=== PATIENT | female | born 1985 | race Caucasian/White ===

== ENCOUNTER 2022-01-16 10:38 | Emergency (ER) | payer OTHER ==
--- OUTSIDE RECORDS SUMMARY | 2022-01-16 10:41 | XMS REPORT | Continuity of Care Document ---
:1985 Author Organization [facility] Address [address] [place] [address] Care Team Providers Name Role Phone SKYLAR SHOOK Attending Clinician Unavailable CYNTHIA MCKEON Attending Clinician Unavailable CYNTHIA MCKEON Admitting Clinician Unavailable Payers Payer Name Policy Type Policy Number Effective Date Expiration Date [facility] [id number] 2019 [facility] MEDICAID 00:00:00 MEDICAID [place] [id number] 2019 00:00:00 Problems This patient has no known problems. Allergies, Adverse Reactions, Alerts Allergy Allergy Status Severity Reaction(s) Onset Inactive Treating Comm ents Source Name Type Date Date Clinician NO KNOWN Drug Active [facility] Medications This patient has no known medications. Procedures This patient has no known procedures. Encounters Start End Encounter Admission Attending Care Care Encounter Source Date/Time Date/Time Type Type Clinicians Facility Department ID 2020-12-26 Outpatient P [facility] TIM [id number] Univers 12:26:20 [facility] 2020-09-14 2020-09-14 Outpatient Liz SHOOK [facility] [id number] Univers 09:00:00 09:00:00 SKYLAR [facility] 2020-04-14 2020-04-14 Outpatient Liz SHOOK [facility] [id number] Univers 09:15:00 09:15:00 SKYLAR fawn [facility] 2020-04-01 2020-04-01 Outpatient CYNTHIA BRANDT [facility] [id number] Univers 15:30:00 15:30:00 [facility] 2020-03-17 2020-03-17 Outpatient Liz SHOOK [facility] [id number] Univers 09:30:00 09:30:00 SKYLAR [facility] 2020-02-17 2020-02-17 Outpatient R MIKE CYNTHIA [facility] [id number] Univers 09:15:00 09:15:00 ity [facility] 2020-02-12 2020-02-12 Outpatient R CYNTHIA MCKEON [facility] [id number] Univers 11:00:00 11:00:00 ity [facility] 2020-02-05 2020-02-05 Outpatient R CYNTHIA MCKEON [facility] [id number] Univers 10:45:00 10:45:00 ity [facility] 2020-01-30 2020-01-30 Outpatient R MIKE CYNTHIA [facility] [id number] Univers 13:00[facility]00 [facility] 2020-01-22 Outpatient R CYNTHIA MCKEON [facility] [id number] Univers 10:45:00 10:45:00 [facility] 2020-01-08 2020-01-08 Outpatient R BOUCHRA [facility] [id number] Univers 10:15:00 10:15:00 [facility] 2019-12-31 2019-12-31 Outpatient R BOUCHRA [facility] [id number] Univers 16:15:00 16:15:00 [facility] 2019-12-24 2019-12-24 Outpatient P [facility] [id number] Univers 08:00:00 08:00:00 [facility] 2019-12-19 2019-12-19 Outpatient R BOUCHRA [facility] [id number] Univers 11:00:00 11:00:00 [facility] 2019-12-16 2019-12-16 Outpatient R BOUCHRA [facility] [id number] Univers 11:00:00 11:00:00 [facility] 2019-11-26 2019-11-26 Outpatient P [facility] [id number] Univers 13:00:00 13:00:00 ity [facility] 2019-11-18 2019-11-18 Outpatient R MIKE CYNTHIA [facility] [id number] Univers 15:30:00 15:30:00 [facility] 2019-09-27 2019-09-27 Outpatient R CYNTHIA MCKEON [facility] [id number] Univers 16:00:00 16:00:00 [facility] 2019-09-17 2019-09-17 Outpatient R CYNTHIA MCKEON [facility] [id number] Univers 13:45:00 13:45:00 [facility] 2019-09-13 2019-09-13 Outpatient R CYNTHIA MCKEON [facility] [id number] Univers 08:45:00 08:45:00 [facility] 2019-09-12 2019-09-12 Outpatient R MIKE CYNTHIA [facility] [id number] Univers 08:30:00 08:30:00 [facility] 2019-09-12 2019-09-12 Outpatient R [facility] [id number] Univers 08:15:00 08:15:00 [facility] 2019-09-05 2019-09-05 Outpatient P [facility] [id number] Univers 10:30:00 10:30:00 [facility] 2019-09-02 2019-09-02 Outpatient R [facility] [id number] Univers 08:30:00 08:30:00 [facility] 2019-08-30 2019-08-30 Outpatient R [facility] [id number] Univers 15:30:00 15:30:00 [facility] 2019-08-15 2019-08-15 Outpatient R MIKE CYNTHIA [facility] [id number] Univers 09:30:00 09:30:00 [facility] Results This patient has no known results.
[2022-01-16] MEDS ORDERED: MORPHINE 4 MG/ML SYR ONE (12:02)
[2022-01-16] MEDS ORDERED: FAMOTIDINE 20 MG/2 ML VIAL IV ONE (12:03)
[2022-01-16] MEDS ORDERED: NA CHLORIDE 0.9% 1,000 ML ONE (12:03)
[2022-01-16] MEDS ORDERED: ONDANSETRON 4 MG/2 ML VIAL ONE (12:03)
[2022-01-16 12:11] LABS: Urine Blood Negative (Negative); Urine Glucose Negative (Negative); Urine Protein Negative (Negative); Urine pH 7.5 (5.0-7.0)
[2022-01-16 12:45] LABS: Absolute Lymphocytes (CBC) 1.9 K/uL (0.7-4.9); Hematocrit 40.3 % (36.0-45.0); Lymphocytes % 22.9 % (15.3-44.8); MCV 86.4 fL (80-100); MPV 8.9 fL (7.6-11.3); RBC Red Blood Cell Count 4.66 M/uL (3.86-4.86)
[2022-01-16] MEDS ORDERED: KETOROLAC 30 MG/ML INJ ONE (13:08)
[2022-01-16 13:40] LABS: Albumin 3.4 g/dL (3.4-5.0); Protein, Total 7.9 g/dL (6.4-8.2)
--- NOTE | 2022-01-16 13:42 | RAD REPORT ---
EXAM DESCRIPTION: CTAbdomen Pelvis W Contrast - 01/16/2022 1:23 pm CLINICAL HISTORY: Abdominal pain. abdominal pain, vomiting COMPARISON: CT ABD PELVIS W CONTRAST dated 11/25/2014 TECHNIQUE: Biphasic CT imaging of the abdomen and pelvis was performed with 100 ml non-ionic IV cont rast. All CT scans are performed using dose optimization technique as appropriate and may include automated exposure control or mA/KV adjustment according to patient size. FINDINGS: The lung bases are clear.Cholecystectomy. The liver, spleen, pancreas, adrenal glands and kidneys are within normal limits. No bowel obstruction, free air, free fluid or abscess. The appendix is normal. No evidence of signi ficant lymphadenopathy. No suspicious bony findings. IMPRESSION: No acute intra-abdominal or pelvic finding.
[2022-01-16] MEDS ORDERED: MAGNES/ALUMIN/SIMET 30ML UCUP ONE (14:08)
[2022-01-16] MEDS ORDERED: LIDOCAINE VISCOUS 2% SOLN 15 ML UDC ONE (14:09)
[2022-01-16] MEDS ORDERED: METOCLOPRAMIDE 10 MG/2mL INJ ONE (15:22)
[2022-01-16] MEDS ORDERED: NA CHLORIDE 0.9% 250 ML ONE (15:23)
[2022-01-16] MEDS ORDERED: DIPHENHYDRAMINE 50 MG/ML VIAL ONE (15:23)
--- NOTE | 2022-01-16 16:38 | EDPHYS ---
Physician Documentation [facility] Name: Heide Acosta Age: 36 yrs Sex: Female : 1985 Arrival Date: 01/16/2022 Time: 10:41 Bed 23 Private MD: ED Physician Hayder García HPI: 01/16 11:07 This 36 yrs old Female presents to ER via Ambulatory with complaints of Abdominal Pain. jmm 11:07 The patient presents with abdominal pain. Onset: The symptoms/episode began/occurred jmm gradually. The symptoms do not radiate. 11:07 Is a 36-year-old female with history of asthma the presents emerged bar with complaints jmm of epigastric pain which is intermittent. Patient complains of one episode of vomiting. Denies any diarrhea. Pain is similar to previous episode acute cholecystitis. Patient no longer has gallbladder.. 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 - Social history:: Smoking status: Patient denies any tobacco usage or history of. ROS: 11:07 Constitutional: Negative for fever, chills, and weight loss, Cardiovascular: Negative jmm for chest pain, palpitations, and edema, Respiratory: Negative for shortness of breath, cough, wheezing, and pleuritic chest pain. 11:07 Abdomen/GI: Positive for abdominal pain. 11:07 All other systems are negative. Exam: 11:07 Constitutional: This is a well developed, well nourished patient who is awake, alert, jmm and in no acute distress. Head/Face: atraumatic. Eyes: EOMI, no conjunctival erythema appreciated ENT: Moist Mucus Membranes Neck: Trachea midline, Supple Chest/axilla: Normal chest wall appearance and motion. Cardiovascular: Regular rate and rhythm. No edema appreciated Respiratory: Normal respirations, no respiratory distress appreciated 11:07 Back: Normal ROM Skin: General appearance color normal MS/ Extremity: Moves all extremities, no obvious deformities appreciated, no edema noted to the lower extremities Neuro: Awake and alert Psych: Behavior is normal, Mood is normal, Patient is cooperative and pleasant 11:07 Abdomen/GI: Inspection: abdomen appears normal, Bowel sounds: normal, Palpation: soft, moderate abdominal tenderness, in the epigastric area. Vital Signs: 11:05 Pulse 89; Resp 16; Temp 98.5(TE); Pulse Ox 99% on R/A; Weight 108.86 kg; Height 5 ft. 2 ss in. (157.48 cm); Pain 10/10; 11:05 BP 128 / 85; ss 12:15 BP 116 / 67; Pulse 75; Resp 18; Pulse Ox 100% on R/A; em6 13:50 BP 109 / 70; Pulse 74; Resp 18; Pulse Ox 100% ; em6 14:55 BP 99 / 82; Pulse 90; Resp 18; Pulse Ox 100% on R/A; em6 16:15 BP 101 / 64; Pulse 65; Resp 18; Pulse Ox 100% on R/A; em6 11:05 Body Mass Index 43.90 (108.86 kg, 157.48 cm) ss MDM: 11:11 Patient medically screened. [facility] 16:37 Data reviewed: vital signs, nurses notes. Counseling: I had a detailed discussion with paul the patient and/or guardian regarding: the historical points, exam findings, and any diagnostic results supporting the discharge/admit diagnosis, lab results, radiology results, the need for outpatient follow up, to return to the emergency department if symptoms worsen or persist or if there are any questions or concerns that arise at home. ED course: CT is negative for any acute process. Patient advised follow GI for further evaluation. Patient otherwise here strict return precautions. Patient understood agrees plan of care. 01/16 11:07 Order name: CBC with Diff; Complete Time: 12:55 [facility] 01/16 11:07 Order name: CMP; Complete Time: 14:05 [facility] 01/16 11:07 Order name: Lipase; Complete Time: 14:05 [facility] 01/16 11:07 Order name: CT Abd/Pelvis - IV Contrast Only; Complete Time: 13:51 [facility] 01/16 12:11 Order name: Urine --Ancillary (enter results); Complete Time: 13:51 eb 01/16 12:11 Order name: Urine Dipstick-Ancillary; Complete Time: 12:12 [facility] 01/16 11:07 Order name: IV Saline Lock; Complete Time: 12:20 [facility] 01/16 11:07 Order name: Labs collected and sent; Complete Time: 12:20 [facility] 01/16 11:07 Order name: Urine Dipstick-Ancillary (obtain specimen); Complete Time: 12:20 jmm 01/16 11:07 Order name: Urine Test (obtain specimen); Complete Time: 12:20 jmm Administered Medications: 12:21 Drug: NS 0.9% 1000 ml Route: IV; Rate: 1 bolus; Site: right antecubital; em6 13:14 Follow up: Response: No adverse reaction; IV Status: Completed infusion; IV Intake: em6 1000ml 12:21 Drug: Pepcid (famotidine) 20 mg Route: IVP; Site: right antecubital; em6 13:14 Follow up: Response: No adverse reaction em6 12:21 Drug: Zofran (Ondansetron) 4 mg Route: IVP; Site: right antecubital; em6 13:14 Follow up: Response: No adverse reaction em6 12:21 Drug: morphine 4 mg Route: IVP; Infused Over: 4 mins; Site: right antecubital; em6 13:14 Follow up: Response: No adverse reaction; RASS: Alert and Calm (0) em6 13:13 Drug: Ketorolac 30 mg Route: IVP; Site: right antecubital; em6 14:00 Follow up: Response: No adverse reaction em6 14:15 Drug: GI Cocktail without - (Maalox Suspension 30 ml, Lidocaine Liquid 2 % 15 em6 ml) Route: PO; 15:00 Follow up: Response: No adverse reaction em6 15:32 Drug: NS 0.9% 250 ml Route: IV; Rate: bolus; Site: right antecubital; em6 16:30 Follow up: Response: No adverse reaction; IV Status: Completed infusion; IV Intake: em6 500ml 15:32 Drug: Reglan (metoCLOPramide) 20 mg Route: IVP; Site: right antecubital; em6 16:00 Follow up: Response: No adverse reaction em6 15:32 Drug: diphenhydrAMINE 12.5 mg Route: IVP; Site: right antecubital; em6 16:00 Follow up: Response: No adverse reaction em6 Disposition Summary: 01/16/22 16:38 Discharge Ordered Location: Home [facility] Condition: Stable [facility] Diagnosis - Abdominal pain, unspecified [facility] Followup: [facility] - With: Private Physician - When: 2 - 3 days - Reason: Recheck today's complaints, Continuance of care, Re-evaluation by your physician Followup: [facility] - With: Vance Parker MD - When: 2 - 3 days - Reason: Recheck today's complaints, Continuance of care, Re-evaluation by your physician Discharge Instructions: - Discharge Summary Sheet [facility] - Abdominal Pain, Adult [facility] Forms: - Medication Reconciliation Form [facility] - Thank You Letter [facility] - Antibiotic Education [facility] - Prescription Opioid Use [facility] Prescriptions: - Carafate 1 gram Oral Tablet - take 1 tablet by ORAL route 4 times per day take on an empty stomach, beginning [facility] on waking and last dose at bedtime; 100 tablet; Refills: 0, Product Selection Permitted - Pepcid 20 mg Oral Tablet - take 1 tablet by ORAL route every 12 hours for 10 days; 20 tablet; Refills: 0, [facility] Product Selection Permitted - Reglan 10 mg Oral Tablet - take 1 tablet by ORAL route every 6 hours take 30 minutes before meals and at [facility] bedtime; 20 tablet; Refills: 0, Product Selection Permitted Signatures: Dispatcher [employer] Ad Bautista PA PA jmm Smirch, Shelby, RN RN ss Kavya Stuart RN RN em6
--- NOTE | 2022-01-16 16:38 | ER ---
Nurse's Notes [facility] Name: Heide Acosta Age: 36 yrs Sex: Female : 1985 Arrival Date: 01/16/2022 Time: 10:41 Bed 23 Private MD: Diagnosis: Abdominal pain, unspecified Presentation: 01/16 11:05 Chief complaint: Patient states: Intermittent, sharp epigastric pain that began last ss night. Coronavirus screen: Client denies travel out of the [place] in the last 14 days. Ebola Screen: Patient denies exposure to infectious person. Patient denies travel to an Ebola-affected area in the 21 days before illness onset. Initial Sepsis Screen: Does the patient meet any 2 criteria? No. Patient's initial sepsis screen is negative. Does the patient have a suspected source of infection? No. Patient's initial sepsis screen is negative. Risk Assessment: Do you want to hurt yourself or someone else? Patient reports no desire to harm self or others. Onset of symptoms was January 15, 2022. 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 - Social history:: Smoking status: Patient denies any tobacco usage or history of. Screenin:22 Abuse screen: Denies threats or abuse. Nutritional screening: No deficits noted. em6 Tuberculosis screening: No symptoms or risk factors identified. Fall Risk IV access (20 points). Total Gregg Fall Scale indicates No Risk (0-24 pts). Assessment: 12:21 General: Appears uncomfortable, Behavior is cooperative, crying. Pain: Complains of em6 pain in abdomen Pain does not radiate. Pain currently is 9 out of 10 on a pain scale. Quality of pain is described as sharp, Pain began 1 day ago. Is intermittent. Neuro: Level of Consciousness is awake, alert, obeys commands, Oriented to person, place, time, situation. Cardiovascular: Denies chest pain, Patient's skin is warm and dry. Respiratory: Airway is patent Respiratory effort is even, unlabored, Respiratory pattern is regular, symmetrical, Breath sounds are clear bilaterally. GI: Abdomen is non-distended, Bowel sounds present X 4 quads. Abd is soft and non tender X 4 quads. : No signs and/or symptoms were reported regarding the genitourinary system. EENT: No signs and/or symptoms were reported regarding the EENT system. Derm: No signs and/or symptoms reported regarding the dermatologic system. Musculoskeletal: Circulation, motion, and sensation intact. Range of motion: intact in all extremities. 13:05 Reassessment: Patient states pain 9 out of 10 in upper abdomen. Provider notified. em6 13:16 Reassessment: patient left to CT in a wheelchair. em6 13:20 Reassessment: No changes from previously documented assessment. Patient and/or family em6 updated on plan of care and expected duration. Pain level reassessed. Patient is alert, oriented x 3, equal unlabored respirations, skin warm/dry/pink. 14:20 Reassessment: No changes from previously documented assessment. Patient and/or family em6 updated on plan of care and expected duration. Pain level reassessed. Patient is alert, oriented x 3, equal unlabored respirations, skin warm/dry/pink. 15:20 Reassessment: No changes from previously documented assessment. Patient and/or family em6 updated on plan of care and expected duration. Pain level reassessed. Patient is alert, oriented x 3, equal unlabored respirations, skin warm/dry/pink. 16:20 Reassessment: Patient and/or family updated on plan of care and expected duration. Pain em6 level reassessed. Patient is alert, oriented x 3, equal unlabored respirations, skin warm/dry/pink. Patient states symptoms have improved. Vital Signs: 11:05 Pulse 89; Resp 16; Temp 98.5(TE); Pulse Ox 99% on R/A; Weight 108.86 kg; Height 5 ft. 2 ss in. (157.48 cm); Pain 10/10; 11:05 BP 128 / 85; ss 12:15 BP 116 / 67; Pulse 75; Resp 18; Pulse Ox 100% on R/A; em6 13:50 BP 109 / 70; Pulse 74; Resp 18; Pulse Ox 100% ; em6 14:55 BP 99 / 82; Pulse 90; Resp 18; Pulse Ox 100% on R/A; em6 16:15 BP 101 / 64; Pulse 65; Resp 18; Pulse Ox 100% on R/A; em6 11:05 Body Mass Index 43.90 (108.86 kg, 157.48 cm) ED Course: 10:41 Patient arrived in ED. mr 10:45 Ad Myers PA is PHCP. jmm 10:45 Hayder García MD is Attending Physician. jmm 11:06 Triage completed. ss 11:06 Arm band placed on right wrist. ss 11:59 Kavya Stuart, LESLYE is Primary Nurse. em6 12:15 Inserted saline lock: 20 gauge in right antecubital area, using aseptic technique. em6 Blood collected. 12:20 CBC with Diff Sent. em6 12:20 CMP Sent. em6 12:20 Lipase Sent. em6 12:23 Placed in gown. Bed in low position. Call light in reach. Side rails up X 1. Pulse ox em6 on. NIBP on. Warm blanket given. 13:25 CT Abd/Pelvis - IV Contrast Only In Process Unspecified. EDMS 16:38 Vance Parker MD is Referral Physician. [facility] 17:04 No provider procedures requiring assistance completed. IV discontinued, intact, em6 bleeding controlled, No redness/swelling at site. Pressure dressing applied. Administered Medications: 12:21 Drug: NS 0.9% 1000 ml Route: IV; Rate: 1 bolus; Site: right antecubital; em6 13:14 Follow up: Response: No adverse reaction; IV Status: Completed infusion; IV Intake: em6 1000ml 12:21 Drug: Pepcid (famotidine) 20 mg Route: IVP; Site: right antecubital; em6 13:14 Follow up: Response: No adverse reaction em6 12:21 Drug: Zofran (Ondansetron) 4 mg Route: IVP; Site: right antecubital; em6 13:14 Follow up: Response: No adverse reaction em6 12:21 Drug: morphine 4 mg Route: IVP; Infused Over: 4 mins; Site: right antecubital; em6 13:14 Follow up: Response: No adverse reaction; RASS: Alert and Calm (0) em6 13:13 Drug: Ketorolac 30 mg Route: IVP; Site: right antecubital; em6 14:00 Follow up: Response: No adverse reaction em6 14:15 Drug: GI Cocktail without - (Maalox Suspension 30 ml, Lidocaine Liquid 2 % 15 em6 ml) Route: PO; 15:00 Follow up: Response: No adverse reaction em6 15:32 Drug: NS 0.9% 250 ml Route: IV; Rate: bolus; Site: right antecubital; em6 16:30 Follow up: Response: No adverse reaction; IV Status: Completed infusion; IV Intake: em6 500ml 15:32 Drug: Reglan (metoCLOPramide) 20 mg Route: IVP; Site: right antecubital; em6 16:00 Follow up: Response: No adverse reaction em6 15:32 Drug: diphenhydrAMINE 12.5 mg Route: IVP; Site: right antecubital; em6 16:00 Follow up: Response: No adverse reaction em6 Medication: 17:05 VIS not applicable for this client. em6 Intake: 13:14 IV: 1000ml; Total: 1000ml. em6 16:30 IV: 500ml; Total: 1500ml. em6 Outcome: 16:38 Discharge ordered by . paul 17:04 Discharged to home ambulatory. em6 17:04 Condition: stable 17:04 Discharge instructions given to patient, Instructed on discharge instructions, follow up and referral plans. medication usage, Demonstrated understanding of instructions, follow-up care, medications, Prescriptions given X 3. 17:05 Patient left the ED. em6 Signatures: Dispatcher [employer] EDMS Ad Myers PA PA jmm Rivera, Mary mr Smirch, Shelby, Kavya España RN, RN RN em6 Corrections: (The following items were deleted from the chart) 13:14 13:14 Response: No adverse reaction; IV Intake: 1000ml em6 em6 13:16 13:14 Reassessment: Patient states pain 9 out of 10 in upper abdomen. Provider notified em6 em6
[2022-01-16 17:09] VITALS: TEMP 98.5
[2022-01-16 17:10] VITALS: O2SAT 100
[2022-01-16 17:14] VITALS: BP 101/64
== END 2022-01-16 17:05 | disposition home or self-care (01) ==
LOC: ER 10:38
DX: R10.13 Epigastric pain (principal)
CPT/HCPCS: 96365; 96361; 85025; 36415; 81025; 81003; 83690; 80053; 74177; 96375; 99284; Q9967; J2765; J1200; J7050; J7030; J2405

== ENCOUNTER → 2023-02-26 | Emergency (ER) | payer OTHER, SELFPAY ==
[~2023-02-26] MED LIST: ALBUTEROL 2.5 MG/3 ML NEB SOL ONE; IPRATROPIUM BROM 0.5MG/2.5ML ONE; MAGNESIUM SULFATE 1 gm IVPB 1 GM/100 ML BAG IV ONE; METHYLPREDNISOLONE 125 MG INJ ONE
--- OUTSIDE RECORDS SUMMARY | 2023-02-26 17:08 | XMS REPORT | Continuity of Care Document ---
Author Name Unknown Address [address] [facility] [place] [address] [facility] thconnect Address [address] [facility] [place] [address] Care Team Providers Care Logging Contractor Name Role Phone Ronda Mullins Primary Care Physicia n SKYLAR SHOOK Attending Clinician Unavailable CYNTHIA MCKEON Attending Clinician Unavailable Cynthia Mckeon MD Attending Clinician [phone] Doctor Unassigned, Muddy Attending Clinician U CYNTHIA Farley Admitting Clinician Unavailable Payers Payer Name Policy Type Policy Number Effective Date Expirati on Date Source [facility] MEDICAID [id number] 2019 00:00:00 [place] [id number] 2019 00:00:00 Problems Condition Name Condition Details Condition Category Status Onset Date Resolution Date Last Treatment Date Treating Clinician Comments Source Nexplanon in place Nexplanon in place Disease Active 04-01 00:00: 00 [facility] BMI 50.0-59.9, adult BMI 50.0-59.9, adult Disease Active 06-28 00:00: 00 [facility] Allergies, Adverse Reactions, Alerts Allergy Name Allergy Type Status Severity Reaction(s) Onset Date Inactive Date Treating Clinician Comments Source NO KNOWN ALLERGIE S Drug Class Active [facility] Social History Social Habit Start Date Stop Date Quantity Comments Source ASSERTION [facility] Exposure to SARS-CoV-2 (event) 2020-03-02 00:00:00 2020-04-01 15:32:00 Unable to assess [facility] Alcohol intake 2019-08-15 00:00:00 2019-08-15 00:00:00 0 /d [facility] History of Social function 2018-09-06 00:00:00 2018-09-06 00:00:00 [facility] Cigarettes smoked current (pack per day) - Reported 2013-08-06 00:00:00 2013-08-06 00:00:00 [facility] Cigarette pack-years 2013-08-06 00:00:00 2013-08-06 00:00:00 [facility] Tobacco use and exposure 2013-08-06 00:00:00 2013-08-06 00:00:00 Smokeless tobacco non-user [facility] History of tobacco use 2012-10-26 00:00:00 Cigarette Smoker [facility] Sex Assigned At 1985 00:00:00 1985 00:00:00 [facility] Smoking Status Start Date Stop Date Source Ex-smoker 2013-08-06 00:00:00 2013-08-06 [facility] Medications Ordered Medication Name Filled Medication Name Start Date Stop Date Current Medication? Ordering Clinician Indication Dosage Frequency Signature (SIG) Comments Components Source ascorbic acid, vitamin C, 500 mg tablet 2016-02 00:00: 00 04-01 00:00 :00 No 500mg Take 1 tablet by mouth 3 (three) times daily. [facility] ascorbic acid, vitamin C, 500 mg tablet 2016-02 0 00:00: 00 04-01 00:00 :00 No 500mg Take 1 tablet by mouth 3 (three) times daily. [facility] ascorbic acid, vitamin C, 500 mg tablet 2016-02 0 00:00: 00 04-01 00:00 :00 No 500mg Take 1 tablet by mouth 3 (three) times daily. [facility] ferrous sulfate 325 mg (65 mg iron) tablet 2016-02 00:00: 00 02-17 00:00 :00 No 325mg Take 1 tablet by mouth 2 (two) times daily. [facility] ferrous sulfate 325 mg (65 mg iron) tablet 2016-02 0-05 00:00: 02-17 00:00 :00 No 325mg Take 1 tablet by mouth 2 (two) times daily. [facility] ferrous sulfate 325 mg (65 mg iron) tablet 2016-02 0-05 00:00: 02-17 00:00 :00 No 325mg Take 1 tablet by mouth 2 (two) times daily. [facility] PNV 67-iron ps-folate no.1-dha (VITAFOL ULTRA) 29 mg iron- 1 mg-200 mg Cap 2016-02 0- 00:00: 02-17 00:00 :00 No [id number] 1{each} Take 1 Each by mouth daily. [facility] PNV 67-iron ps-folate no.1-dha (VITAFOL ULTRA) 29 mg iron- 1 mg-200 mg Cap 2016-02 0- 00:00: 02-17 00:00 :00 No [id number] 1{each} Take 1 Each by mouth daily. [facility] PNV 67-iron ps-folate no.1-dha (VITAFOL ULTRA) 29 mg iron- 1 mg-200 mg Cap 2016-02 0-03 00:00: 00 02-17 00:00 :00 No [id number] 1{each} Take 1 Each by mouth daily. [facility] Immunizations Ordered Immunization Name Filled Immunization Name Date Status Comments Source Rubella Unknown Completed [facility] TD, NOS Unknown Completed [facility] TDAP Unknown Completed [facility] TDAP Unknown Completed [facility] TDAP Unknown Completed [facility] MMR Unknown Completed [facility] TDAP Unknown Completed [facility] Influenza Virus Vaccine Quad .5 mL IM 6+ MO (FLUZONE/FLULAVAL/FL UARIX) Unknown Completed [facility] Rubella Unknown Completed [facility] TD, NOS Unknown Completed [facility] TDAP Unknown Completed [facility] TDAP Unknown Completed [facility] TDAP Unknown Completed [facility] MMR Unknown Completed [facility] TDAP Unknown Completed [facility] Influenza Virus Vaccine Quad .5 mL IM 6+ MO (FLUZONE/FLULAVAL/FL UARIX) Unknown Completed [facility] Rubella Unknown Completed [facility] TD, NOS Unknown Completed [facility] TDAP Unknown Completed [facility] TDAP Unknown Completed [facility] TDAP Unknown Completed [facility] MMR Unknown Completed [facility] Rubella Unknown Completed [facility] TD, NOS Unknown Completed [facility] TDAP Unknown Completed [facility] TDAP Unknown Completed [facility] TDAP Unknown Completed [facility] MMR Unknown Completed [facility] Encounters Start Date/Time End Date/Time Encounter Type Admission Type Attending [facility] Care Facility Care Department Encounter ID Source 2020-12-26 12:26:20 Outpatient P [facility] [id number] [facility] 2020-09-14 09:00:00 2020-09-14 09:00:00 Outpatient SKYLAR [facility] [id number] [facility] 2020-04-14 09:15:00 2020-04-14 09:15:00 Outpatient SKYLAR [facility] [id number] [facility] 2020-04-01 15:30:00 2020-04-01 15:30:00 Outpatient CYNTHIA [facility] [id number] [facility] 2020-03-17 09:30:00 2020-03-17 09:30:00 Outpatient SKYLAR [facility] [id number] [facility] 2020-02-17 09:15:00 2020-02-17 09:15:00 Outpatient CYNTHIA [facility] [id number] [facility] 2020-02-12 11:00:00 2020-02-12 11:00:00 Outpatient CYNTHIA [facility] [id number] [facility] 2020-02-07 00:00:00 2020-02-07 00:00:00 Patient Secure MsCynthia Perkins Cam [facility] [id number] [facility] 2020-02-05 10:45:00 2020-02-05 10:45:00 Outpatient R CYNTHIA [facility] [id number] [facility] 2020-01-30 13:00:00 2020-01-30 13:00:00 Outpatient R CYNTHIA [facility] [id number] [facility] 2020-01-22 10:45:00 2020-01-22 10:45:00 Outpatient R CYNTHIA [facility] [id number] [facility] 2020-01-14 00:00:00 2020-01-14 00:00:00 Patient Secure Msg Doctor Unassigned, Muddy [facility] [id number] [facility] 2020-01-08 10:15:00 2020-01-08 10:15:00 Outpatient SKYLAR [facility] [id number] [facility] 2019-12-31 16:15:00 2019-12-31 16:15:00 Outpatient SKYLAR [facility] [id number] [facility] 2019-12-24 08:00:00 2019-12-24 08:00:00 [facility] [id number] [facility] 2019-12-19 11:00:00 2019-12-19 11:00:00 Outpatient SKYLAR [facility] [id number] [facility] 2019-12-16 11:00:00 2019-12-16 11:00:00 Outpatient SKYLAR [facility] [id number] [facility] 2019-11-26 13:00:00 2019-11-26 13:00:00 Outpatient [facility] [id number] [facility] 2019-11-18 15:30:00 2019-11-18 15:30:00 Outpatient R CYNTHIA [facility] [id number] [facility] 2019-09-27 16:00:00 2019-09-27 16:00:00 Outpatient R CYNTHIA [facility]KE[facility] [id number] [facility] 2019-09-20 00:00:00 2019-09-20 00:00:00 Patient Secure Msg Cynthia Mckeon [facility] ..[id number] [facility] 2019-09-17 13:45:00 2019-09-17 13:45:00 Outpatient R CYNTHIA [facility]KE[facility] [id number] [facility] 2019-09-13 08:45:00 2019-09-13 08:45:00 Outpatient R CYNTHIA [facility]KE[facility] [id number] [facility] 2019-09-12 08:30:00 2019-09-12 08:30:00 Outpatient R CYNTHIA [facility]KE[facility] [id number] [facility] 2019-09-12 08:15:00 2019-09-12 08:15:00 Outpatient [facility] [id number] [facility] 2019-09-05 10:30:00 2019-09-05 10:30:00 Outpatient [facility] [id number] [facility] 2019-09-02 08:30:00 2019-09-02 08:30:00 Outpatient [facility] [id number] [facility] 2019-09-02 00:00:00 2019-09-02 00:00:00 Patient Secure Msg Doctor Unassigned, Muddy [facility] [employer] [id number] [facility] 2019-08-30 15:30:00 2019-08-30 15:30:00 Outpatient [facility] [id number] [facility] 2019-08-15 09:30:00 2019-08-15 09:30:00 Outpatient R CYNTHIA MCKE[facility] [id number] [facility]
[2023-02-26 18:20] LABS: SARS-CoV-2 Antigen Rapid Res Negative (Negative)
--- NOTE | 2023-02-26 18:51 | RAD REPORT ---
EXAM DESCRIPTION: RAD - Chest Single View - 02/26/2023 6:41 pm CLINICAL HISTORY: Cough;Dyspnea Chest pain. COMPARISON: <Comparisons> FINDINGS: Portable technique limits examination quality. The lungs are grossly clear. The heart is normal in size. No displaced fractures. IMPRESSION: No acute intrathoracic process suspected.
--- NOTE | 2023-02-26 19:43 | ER ---
Nurse's Notes [facility] Name: Heide Acosta Age: 38 yrs Sex: Female : 1985 Arrival Date: 02/26/2023 Time: 17:05 Bed 9 Private MD: Diagnosis: Unspecified asthma with (acute) exacerbation Presentation: 02/26 17:29 Chief complaint: Patient states: Pt c/o increasing shortness of breath and coughing x 1 tl4 week. Pt has hx of asthma. No relief with OTC meds. Coronavirus screen: Vaccine status: Patient reports being unvaccinated. congestion, cough unrelated to allergies, shortness of breath. Ebola Screen: Patient negative for fever greater than or equal to 101.5 degrees Fahrenheit, and additional compatible Ebola Virus Disease symptoms Patient denies exposure to infectious person. Patient denies travel to an Ebola-affected area in the 21 days before illness onset. No symptoms or risks identified at this time. Initial Sepsis Screen: Does the patient meet any 2 criteria? No. Patient's initial sepsis screen is negative. Does the patient have a suspected source of infection? No. Patient's initial sepsis screen is negative. Risk Assessment: Do you want to hurt yourself or someone else? Patient reports no desire to harm self or others. Onset of symptoms was February 19, 2023. 17:29 Method Of Arrival: Ambulatory tl4 17:29 Acuity: [place] 3 tl4 Triage Assessment: 19:57 General: Appears in no apparent distress. comfortable, Behavior is cooperative, bp appropriate for age. Pain: Denies pain. Historical: - Allergies: 17:31 No Known Allergies; tl4 - PMHx: 17:31 Asthma; tl4 - PSHx: 17:31 Cholecystectomy; tl4 - Immunization history:: Adult Immunizations unknown. - Social history:: Smoking status: Patient denies any tobacco usage or history of. Screenin:55 [facility] ED Fall Risk Assessment (Adult) History of falling in the last 3 months, bp including since admission No falls in past 3 months (0 pts). Abuse screen: Denies threats or abuse. Denies injuries from another. Nutritional screening: No deficits noted. Tuberculosis screening: No symptoms or risk factors identified. Vital Signs: 17:29 BP 125 / 81; Pulse 82; Resp 20; Temp 97.6; Pulse Ox 100% on R/A; Weight 117.93 kg; tl4 Height 5 ft. 5 in. ; Pain 5/10; 17:29 Body Mass Index 43.27 (117.93 kg, 165.1 cm) tl4 17:29 Pain Scale: Adult tl4 ED Course: 17:07 Patient arrived in ED. ae5 17:11 [facility] Henderson[facility] kb 17:11 Bryson Levine MD is Attending Physician. kb 17:31 Triage completed. tl4 17:32 Arm band placed on Patient placed in an exam room, on a stretcher. tl4 17:34 Cayetano Hui, RN is Primary Nurse. bp 17:45 Flu Sent. ds4 17:45 SARS-COV-2 Antigen Rapid Sent. ds4 17:45 Inserted saline lock: 20 gauge in right antecubital area, using aseptic technique. ds4 18:43 Chest Single View XRAY In Process Unspecified. EDMS 19:55 Patient has correct armband on for positive identification. bp 19:55 No provider procedures requiring assistance completed. IV discontinued, intact, bp bleeding controlled, No redness/swelling at site. Pressure dressing applied. Administered Medications: 18:02 Drug: Magnesium Sulfate IVPB 1 grams IVPB once over 1 hrs Route: IVPB; Infused Over: 1 bp hrs; Site: right antecubital; 19:56 Follow up: IV Status: Completed infusion; IV Intake: 100ml bp 18:02 Drug: MethylPrednisoLONE IVP 125 mg IVP once Route: IVP; Site: right antecubital; bp 19:57 Follow up: Response: No adverse reaction bp 18:02 Drug: DuoNeb Nebulize (3:1) (2.5 mg - 0.5 mg) 3 ml Nebulizer once Route: Nebulizer; bp 19:57 Follow up: Response: No adverse reaction bp 19:01 Drug: Albuterol Inhalation 2.5 mg Inhalation once Route: Inhalation; bp Intake: 19:56 IV: 100ml; Total: 100ml. bp Outcome: 19:43 Discharge ordered by . kb 19:55 Discharged to home ambulatory, bp 19:55 Condition: stable 19:55 Discharge instructions given to patient, Instructed on discharge instructions, follow up and referral plans. medication usage, Demonstrated understanding of instructions, follow-up care, medications, Prescriptions given X 3, 19:58 Patient left the ED. bp Signatures: Dispatcher [employer] EDMS Josie Henderson, SUPERVISOR FLOOR ASSEMBLY-C SUPERVISOR FLOOR ASSEMBLY-Ckb Genaro Corey ds4 Cayetano Hui, RN RN James Arellano tl4 Nadine Gordillo ae5
--- NOTE | 2023-02-26 19:43 | EDPHYS ---
Physician Documentation [facility] Name: Heide Acosta Age: 38 yrs Sex: Female : 1985 Arrival Date: 02/26/2023 Time: 17:05 Bed 9 Private MD: ED Physician Bryson Levine HPI: 02/26 17:29 This 38 yrs old Female presents to ER via Unassigned with complaints of Asthma kb Exacerbation. 17:29 Pt is a 38 year old female with a history of asthma who presents for cough, shortness kb of breath for one week. States she has tried otc medications without relief. Currently does not have an albuterol inhaler. Denies fever. Historical: - Allergies: 17:31 No Known Allergies; tl4 - PMHx: 17:31 Asthma; tl4 - PSHx: 17:31 Cholecystectomy; tl4 - Immunization history:: Adult Immunizations unknown. - Social history:: Smoking status: Patient denies any tobacco usage or history of. ROS: 17:29 Constitutional: Negative for fever, chills, and weight loss, kb 17:29 Respiratory: Positive for cough, shortness of breath, wheezing, 17:29 All other systems are negative, Exam: 18:46 Constitutional: This is a well developed, well nourished patient who is awake, alert, kb and in no acute distress. Head/Face: Normocephalic, atraumatic. ENT: Moist Mucous membranes Cardiovascular: Regular rate Abdomen/GI: Soft, non-tender. No distention Skin: Warm, dry with normal turgor. Normal color. MS/ Extremity: Pulses equal, no cyanosis. Neurovascular intact. Full, normal range of motion. Neuro: Awake and alert, GCS 15, oriented to person, place, time, and situation. Moves all extremities. Normal gait. 18:46 Respiratory: the patient does not display signs of respiratory distress, Respirations: normal, Breath sounds: wheezing: expiratory that is moderate, is heard diffusely, Vital Signs: 17:29 BP 125 / 81; Pulse 82; Resp 20; Temp 97.6; Pulse Ox 100% on R/A; Weight 117.93 kg; tl4 Height 5 ft. 5 in. ; Pain 5/10; 17:29 Body Mass Index 43.27 (117.93 kg, 165.1 cm) tl4 17:29 Pain Scale: Adult tl4 MDM: 17:11 Patient medically screened. kb 18:47 Differential diagnosis: acute asthma, URI, flu, covid, pneumonia. Data reviewed: vital kb signs, nurses notes. 19:42 Counseling: I had a detailed discussion with the patient and/or guardian regarding the kb historical points, exam findings, and any diagnostic results supporting the discharge/admit diagnosis, lab results, radiology results, the need for outpatient follow up, a family practitioner, to return to the emergency department if symptoms worsen or persist or if there are any questions or concerns that arise at home. Response to treatment: the patient's symptoms have markedly improved after treatment. 02/26 17:29 Order name: Flu; Complete Time: 18:20 kb 02/26 17:29 Order name: SARS-COV-2 Antigen Rapid; Complete Time: 18:23 kb 02/26 17:29 Order name: Chest Single View XRAY; Complete Time: 18:59 kb 02/26 17:29 Order name: IV Start; Complete Time: 17:45 kb Administered Medications: 18:02 Drug: Magnesium Sulfate IVPB 1 grams IVPB once over 1 hrs Route: IVPB; Infused Over: 1 bp hrs; Site: right antecubital; 19:56 Follow up: IV Status: Completed infusion; IV Intake: 100ml bp 18:02 Drug: MethylPrednisoLONE IVP 125 mg IVP once Route: IVP; Site: right antecubital; bp 19:57 Follow up: Response: No adverse reaction bp 18:02 Drug: DuoNeb Nebulize (3:1) (2.5 mg - 0.5 mg) 3 ml Nebulizer once Route: Nebulizer; bp 19:57 Follow up: Response: No adverse reaction bp 19:01 Drug: Albuterol Inhalation 2.5 mg Inhalation once Route: Inhalation; bp Disposition: 02/27 08:57 Co-signature as Attending Physician, Bryson Levine MD I reviewed the patient's care rn provided by the Advanced Practice Provider and agree with the diagnosis and treatment plan. Disposition Summary: 02/26/23 19:43 Discharge Ordered Notes: Location: Home kb Condition: Stable kb Diagnosis - Unspecified asthma with (acute) exacerbation kb Followup: kb - With: Emergency Department - When: As needed - Reason: Worsening of condition Followup: kb - With: Private Physician - When: 2 - 3 days - Reason: Recheck today's complaints, Continuance of care, Re-evaluation by your physician Discharge Instructions: - Discharge Summary Sheet kb - Asthma, Adult, [id number] kb Forms: - Medication Reconciliation Form kb - Thank You Letter kb - Antibiotic Education kb - Prescription Opioid Use kb - Patient Portal Instructions kb - Leadership Thank You Letter kb Prescriptions: - albuterol sulfate 90 mcg/actuation Inhalation HFA Aerosol Inhaler - inhale 2 puff INHALATION route every 4-6 hours As needed; 1 unit; Refills: 0, kb Product Selection Permitted - Prednisone 20 mg Oral Tablet - take 1 tablet ORAL route once daily for 5 days; 5 tablet; Refills: 0, Product kb Selection Permitted - Albuterol Sulfate 2.5 mg /3 mL (0.083 %) Inhalation Solution for Nebulization - inhale 1 unit NEBULIZATION route every 8 hours As needed dispense one box; 1 kb unit; Refills: 0, Product Selection Permitted Signatures: Dispatcher [employer] Josie Meraz, FORM BUILDER-C FORM BUILDER-Bryson Hong MD MD rn Peltier, Brian, RN RN James Arellano tl4
[2023-02-26 20:22] VITALS: BP 125/81; TEMP 97.6; O2SAT 100
== END ==
LOC: ER 17:05
DX: J45.901 Unspecified asthma with (acute) exacerbation (principal); Z11.52 Encounter for screening for COVID-19
CPT/HCPCS: 96365; 36415; 87804 ×2; 71045; 94640; 96375; 99285; 96366; 87811; J3475; J7613 ×2; J7644; J2930